=== PATIENT | female | born 1970 | race Caucasian/White ===

== ENCOUNTER 2022-05-08 16:19 | Outpatient (CLI) | payer OTHER, SELFPAY ==
[2022-05-08 17:02] LABS: Beta HCG Quantitative < 2.39 mIU/ML
== END 2022-05-08 16:20 | disposition home or self-care (01) ==
LOC: ANHLAB 16:23
PROVIDERS: PCP Internal Medicine; Visit Provider Student in an Organized Health Care Education/Training Program
DX: N93.9 Abnormal uterine and vaginal bleeding, unspecified (principal)
CPT/HCPCS: 36415; 84702

== ENCOUNTER 2022-07-11 16:06 | Outpatient (CLI) | payer OTHER, SELFPAY ==
--- NOTE | ~2022-07-11 | US_ITS ---
EXAMINATION: US pelvic complete w TV DATE: 07/11/2022 16:52 INDICATION: Frequent menstruation. Assess IUD placement. TECHNIQUE: Multiple endovaginal sonographic images of the pelvis were obtained. COMPARISON: 04/27/2022 FINDINGS: The uterus measures 11.3 x 7.9 x 7.6 cm. 2.3 cm hypoechoic fibroid in the anterior uterine wall. 10 m m anechoic nabothian cyst at the cervix. The endometrial complex measures 8 mm in thickness. No IUD i dentified. Right left ovaries are not visualized. There is no free fluid in the pelvis. IMPRESSION: 1. No IUD identified in the endometrial complex which measures 8 mm in thickness. 2. No significant change in a 2.3 cm fibroid in the anterior uterine wall. Reviewed, dictated and finalized at location A. IMPRESSION: 1. No IUD identified in the endometrial complex which measures 8 mm in thicknes s. 2. No significant change in a 2.3 cm fibroid in the anterior uterine wall.
== END 2022-07-11 16:07 | disposition home or self-care (01) ==
PROVIDERS: PCP Internal Medicine; Visit Provider Obstetrics & Gynecology
DX: N92.0 Excessive and frequent menstruation with regular cycle (principal)
CPT/HCPCS: 76830; 76856

== ENCOUNTER 2022-07-12 16:30 | Outpatient (CLI) | payer OTHER, SELFPAY ==
--- NOTE | ~2022-07-12 | XR_ITS ---
AP and oblique views of the abdomen CLINICAL HISTORY: IUD not seen on ultrasound FINDINGS: Bowel gas pattern nonspecific. Osseous structures are intact. Possible 3 mm left renal ston e. No IUD visualized. IMPRESSION: No IUD visualized. Possible 3 mm left renal stone. Reviewed, dictated and finalized at [facility].
--- NOTE | ~2022-07-12 | XR_ITS ---
AP and oblique views of the pelvis CLINICAL HISTORY: IUD not visualized on ultrasound FINDINGS: No fracture or dislocation seen. Visually joint spaces are preserved. Soft tissues are unre markable. No IUD identified. IMPRESSION: No IUD seen in the [id number]. No significant abnormality otherwise. Reviewed, dictated and finalized at location . IMPRESSION: No IUD seen in the [id number]. No significant abnormality otherwise.
== END 2022-07-12 16:31 | disposition home or self-care (01) ==
LOC: ANHIMG 16:32
PROVIDERS: PCP Internal Medicine; Visit Provider Obstetrics & Gynecology
DX: T83.32XA Displacement of intrauterine contraceptive device, initial encounter (principal)
CPT/HCPCS: 72190; 74021

== ENCOUNTER 2022-08-16 01:20 | Day surgery (SDC) | payer OTHER, SELFPAY ==
[2022-08-10 14:18] VITALS: BMI 45.5
--- NOTE | 2022-08-10 14:21 | SUR.PREOP ---
Report to the Outpatient Waiting Room, entrance under the green pavilion located off [facility], at time on date . Planned Procedure Time: . Time changes happen often and if your time is changed the preop area will call you the afternoon before. - You and your visitor will be asked to self-screen and do not enter if you have any COVID symptoms. - A mask is optional within the hospital at this time. Patients may have clear liquids (water, carbonated beverages, clear teas, apple juice) until 3 hours prior to surgery with a maximum of 20 ounces. - No food from midnight until time of surgery - Infants may have breast milk until 4 hours before surgery, infant formula 6 hours prior to surgery. - Children will be allowed to drink immediately following surgery. If applicable, please bring a bottle or sippy cup to assist with drinking. Juice, water, soda, and popsicles are readily available. For infants on formula, please bring formula the day of surgery. Pacifiers are allowed. Take the following medications with a SIP of water the morning of surgery: DO NOT STOP ANY OF YOUR OTHER PRESCRIPTION MEDICATIONS PRIOR TO SURGERY ?EXCEPT THE FOLLOWING Medications to discontinue per physician Date to take last dose Please no make-up, nail pashto, hairspray, perfume, deodorant, or body powder the day of surgery. No jewelry (including any body piercings) or valuables the day of surgery, leave them at home. Please take a shower or bath the night before, or the morning of, surgery with an antibacterial soap. Wear comfortable, loose fitting clothing. Children are encouraged to wear pajamas. - Jewelry must be removed prior to entering the operating room. Rings and piercings that are not removed may be cut off. - The hospital will not accept responsibility for valuables. - Please leave all valuables, including medications, at home the day of surgery. If you are going home after surgery, a licensed long haul truck driver must drive you home. - NO public transportation without another adult if you receive anesthesia. - We recommend that an adult stay with you for 24 hours following discharge. - We also recommend that you do not drive, make important decision, drink alcoholic beverages, or take any drugs that were not prescribed by your health care provider for at least 24 hours after your discharge time. For Pediatric surgeries, we recommend two adults accompany the child home. Follow any additional instructions given to you from your surgeon. If you or anyone in your household have experienced Covid symptoms in the past week, please notify your surgeon or the nurse liaison at the phone number below for possible testing. Telephone instructions given to and asked if any additional questions and then verbalized understanding. Patient advised to call surgeon office or pre surgery nurse liaison [phone] if any additional questions.
--- NOTE | 2022-08-10 14:22 | SUR.PREOP ---
Report to the Outpatient Waiting Room, entrance under the green pavilion located off [facility], at time _0745 on date _08/16/22 . Planned Procedure Time: __944 . Time changes happen often and if your time is changed the preop area will call you the afternoon before. - You and your visitor will be asked to self-screen and do not enter if you have any COVID symptoms. - A mask is optional within the hospital at this time. Patients may have clear liquids (water, carbonated beverages, clear teas, apple juice) until 3 hours prior to surgery with a maximum of 20 ounces. - No food from midnight until time of surgery - Infants may have breast milk until 4 hours before surgery, infant formula 6 hours prior to surgery. - Children will be allowed to drink immediately following surgery. If applicable, please bring a bottle or sippy cup to assist with drinking. Juice, water, soda, and popsicles are readily available. For infants on formula, please bring formula the day of surgery. Pacifiers are allowed. Take the following medications with a SIP of water the morning of surgery: __lexapro,levothyroxine DO NOT STOP ANY OF YOUR OTHER PRESCRIPTION MEDICATIONS PRIOR TO SURGERY ?EXCEPT THE FOLLOWING Medications to discontinue per physician ___n/a Date to take last dose___n/a pt to consult with dr zhao in regards to holding xarelto Please no make-up, nail brazilian, hairspray, perfume, deodorant, or body powder the day of surgery. No jewelry (including any body piercings) or valuables the day of surgery, leave them at home. Please take a shower or bath the night before, or the morning of, surgery with an antibacterial soap. Wear comfortable, loose fitting clothing. Children are encouraged to wear pajamas. - Jewelry must be removed prior to entering the operating room. Rings and piercings that are not removed may be cut off. - The hospital will not accept responsibility for valuables. - Please leave all valuables, including medications, at home the day of surgery. If you are going home after surgery, a licensed motor coach driver must drive you home. - NO public transportation without another adult if you receive anesthesia. - We recommend that an adult stay with you for 24 hours following discharge. - We also recommend that you do not drive, make important decision, drink alcoholic beverages, or take any drugs that were not prescribed by your health care provider for at least 24 hours after your discharge time. For Pediatric surgeries, we recommend two adults accompany the child home. Follow any additional instructions given to you from your surgeon. If you or anyone in your household have experienced Covid symptoms in the past week, please notify your surgeon or the nurse liaison at the phone number below for possible testing. Telephone instructions given to tarah dixon and asked if any additional questions and then verbalized understanding. Patient advised to call surgeon office or pre surgery nurse liaison [phone] if any additional questions.
[2022-08-16] VITALS (10 sets, daily range): BP systolic 106–132; BP diastolic 60–108; PULSE 68–92; RESP 14–18; TEMP 36.6–36.8; O2SAT 92–100
--- NOTE | 2022-08-16 06:08 | ECG_ITS ---
Measurements Intervals [place] Rate: 84 P: 28 AK: 144 QRS: 7 QRSD: 78 T: 10 QT: 355 QTc: 420 Interpretive Statements SINUS RHYTHM NO PREVIOUS ECG AVAILABLE FOR COMPARISON Electronically Signed On 08-16-2022 13:32:38 CDT by Candida Rodriguez M.D.
--- NOTE | 2022-08-16 09:05 | P.HPUP_ITS ---
History and Physical Update Update Date/Time: 08/16/22 09:05 Assessment: 1. menorrhagia 2. desires sterilization Plan: 1. hysteroscopy with uterine curetting 2. endometrial ablation 3. bilateral salpingectomy History and Physical has been reviewed, including an updated exam of the patie nt. There are NO changes in the patient's condition. Risks, benefits, and alternatives have been discussed and questions answered. Patient agrees to proceed with procedure.
--- NOTE | 2022-08-16 09:08 | WPDANESEPPF ---
Anes - Initial Pre Proc Eval Procedure: Operation Date: 08/16/22 10:15 Proposed Procedures p Hysteroscopy Dilation and Curettage, Raiza Endometrial Ablation, Bilateral Laparoscopic Salpingectomy - Aaron Palomares MD Date/Time: 08/16/22 09:08 Surgeon: Aaron Palomares MD Pre Op Diagnosis: Menorrhagia, Desire Sterilization Patient Data Age: 51 Gender: F Height: 1.83 m Weight: 152.27 kg Allergies Allergy/AdvReac Type Severity Reaction Status Date / Time codeine AdvReac Intermediate Nausea Verified 08/10/22 13:26 hydrocodone AdvReac Intermediate NAUSEA Verified 08/10/22 13:25 Home Medications Medication Instructions Recorded Confirmed Type escitalopram oxalate 20 mg tablet 20 mg PO DAILY 04/19/22 08/10/22 History (Lexapro) ferrous sulfate 325 mg (65 mg mg PO 08/10/22 History iron) tablet,delayed release levothyroxine 300 mcg tablet 300 mcg PO DAILY 08/10/22 08/10/22 History minocycline 50 mg tablet mg 08/10/22 History rivaroxaban 20 mg tablet (Xarelto) 20 mg PO DAILY 08/10/22 08/10/22 History Patient hx anesthesia problems: none Family hx anesthesia problems: none Results Review: All pre-operative results and documents have been reviewed as part of the pre-operative evaluation. [facility] Past Medical History Medical History Anxiety Depression Encounter for initial insertion of intrauterine contraceptive device Hypothyroid IUD migration Kidney stone Surgical History Surgical History H/O hernia repair History of gynecological procedure (05/09/22) mirena iud insertion Hx of cholecystectomy Hx of gastric bypass Family History Family History Other Breast cancer Father Diabetes mellitus Grandparent Diabetes mellitus Heart disease Social History Social History Smoking status: Never smoker Alcohol intake: current Alcohol use details: socially Substance use: current Substance use type: marijuana Other substance usage details: eatables biweekly Living arrangements: with family Occupation/Education: unemployed Gender identity (if verbalized by the patient): Female Sexual Orientation (if Verbalized by the Patient): Straight or Heterosexual Spiritual care concerns: No Anes - Eval Final PreProcedure Day of Procedure 08/16/22 09:08 Patient weight: morbidly obese Heart: regular rate and rhythm Lungs: clear to auscultation Airway: Mallampati scale class II Neurological: alert and oriented Last oral intake: >/= 8 hours ASA classification: III Emergent: no Anesthetic plan: proceed Anesthesia type and monitoring: general ETT and standard monitoring Results Review: All pre-operative results and documents have been reviewed as part of the pre-operative evaluation. Informed Consent: The patient's anesthetic plan and its attendant risks and benefits were discussed with the patient/family/POA. Questions were solicited and answers provided to the satisfaction of the patient/family/POA.
[2022-08-16 09:42] LABS: Prothrombin Time 13.1 Seconds (11.1-14.7)
[2022-08-16 09:43] LABS: Partial Thromboplastin Time 23.2 SECONDS (22.3-36.8)
[2022-08-16] MEDS: KETOROLAC 15 MG/ML VIAL (*BKC) IV PUSH (09:45)
[2022-08-16] MEDS: ACETAMINOPHEN 500 MG TABLET 1000 MG PO (09:45)
[2022-08-16] MEDS: LACTATED RINGERS 1,000 ML 30 ML IV CONT ×2 (09:45→10:57)
[2022-08-16] MEDS: ceFAZolin SODIUM 1 GM VIAL 3 GM IV PUSH (10:25)
--- NOTE | 2022-08-16 10:54 | P.OP_ITS ---
Procedure Note - Detailed Date of Procedure 08/16/22 Pre-op Diagnosis Menorrhagia, Desire Sterilization Post-op Diagnosis Same Procedure Performed 1. hysteroscopy with uterine curettings 2. Endometrial ablation 3. Bilateral salpingectomy Surgeon Aaron Palomares MD Anesthesia General Findings Hysteroscopic exam without abnormality. Laparoscopic exam with uterine fibroids, tubes and ovaries without abnormality. Description of Procedure Patient prepped draped usual manner for this procedure. Attention was placed the vagina and cervical instruments placed for uterine mobility throughout the case. Abdominal trocar sites were then placed under direct visualization, with the camera port being in the left upper quadrant due to prior periumbilical surgery. Lower trocars were then also placed under direct visualization and findings were as noted above. Bilaterally the tubes were grasped and mesial salpinx was cauterized and cut and tubes removed without difficulty. There was no bleeding, gas was allowed to escape, and incisions were approximated using 4- 0 Monocryl and skin glue. Cervix was dilated to allow the hysteroscope be placed with findings again as noted above with no significant abnormalities noted. Uterine curettings were obtained. Raiza instrument was then placed in the uterine cavity, cavity assessment was performed, and procedure was activated. At the end of the procedure hysteroscopic exam revealed no abnormalities and no remaining tissue. And good destruction throughout the endometrial cavity. Patient was then sent to recovery room in stable condition. Estimated Blood Loss 10 Drains No Packing No Pathology Yes Complications No immediate complications Condition Stable Disposition PACU [facility] Billing Surgery - Charge Forward: Surgery Billing
[2022-08-16] MEDS: oxyCODONE HCL (*CRX) 5 MG TAB IR PO (12:50)
[2022-08-16] MEDS: fentaNYL CITRATE INJ (*CRX) 100 MCG/2 ML VIAL 25 MCG IV PUSH (12:56)
--- NOTE | 2022-08-16 13:53 | SUR.PHASEII ---
1230 PATIENT C/O'D LEFT-MEDIAL MID-CHEST PAIN, DULL X FEW MINUTES. RESOLVED AFTER SHE STOOD UP.
== END 2022-08-16 13:45 | disposition home or self-care (01) ==
PROVIDERS: Anesthesiology; PCP Internal Medicine; Visit Provider Obstetrics & Gynecology
PROC: 0UDB8ZZ Extraction of Endometrium, Via Natural or Artificial Opening Endoscopic (ICD-10-PCS; CPT 58558; principal; 2022-08-16 10:15)
DX: N92.0 Excessive and frequent menstruation with regular cycle (principal); Z30.2 Encounter for sterilization; D25.9 Leiomyoma of uterus, unspecified; E03.9 Hypothyroidism, unspecified; F41.9 Anxiety disorder, unspecified; F32.A Depression, unspecified; Z98.84 Bariatric surgery status; F12.90 Cannabis use, unspecified, uncomplicated; E66.01 Morbid (severe) obesity due to excess calories; Z68.42 Body mass index [BMI] 45.0-49.9, adult; Z79.01 Long term (current) use of anticoagulants
CPT/HCPCS: 58563; 58661; 36415; 85610; 85730; 88302; 88305; 93005; A9270; J0330; J0690; J1100; J1885; J2250; J2405; J2704; J3010; J7120

== ENCOUNTER 2023-11-18 22:19 | Emergency (ER) | payer OTHER, SELFPAY ==
--- NOTE | ~2023-11-18 | CT_ITS ---
Non-contrast CT scan of the Abdomen and Pelvis Clinical indication: Left ureteral stone Technique: 2.5 mm axial scans were obtained through the abdomen and pelvis without intravenous or or al contrast. Dose reduction technique was used on this scan by utilizing automated exposure control a nd iterative reconstruction technique. The dose-length product (DLP) was 1570.61 mGy-cm. Findings: Images through the lung bases reveal no abnormalities. Punctate nonobstructing left renal stone present. No right renal stone. There is a 4 mm stone at the left UVJ versus just within the urinary bladder. No hydronephrosis. No right ureteral stone. The liver, spleen, pancreas, and adrenals appear normal. Gallbladder absent. There is no aortic aneur ysm. There is no evidence of bowel obstruction. Evidence of prior bariatric surgery or fundoplication. Sma ll hiatal hernia noted. Small fat-containing ventral hernia noted at the umbilicus. Images through the pelvis were performed. There is no evidence of ascites or lymphadenopathy. No adne xal mass seen. Impression: 4 mm stone at the left UVJ, or else just within the urinary bladder. No hydronephrosis. Additional punctate nonobstructing left renal stone. Small hiatal hernia, without evidence of probable prior fundoplication or bariatric surgery. Small fat-containing umbilical hernia. Reviewed, dictated and finalized at [facility]. Impression: 4 mm stone at the left UVJ, or else just within the urinary bladder. No hydrone phrosis. Additional punctate nonobstructing left renal stone. Small hiatal hernia, without evidence of probable prior fundoplication or baria tric surgery. Small fat-containing umbilical hernia.
[2023-11-18 22:20] VITALS: BP 140/91; PULSE 86; RESP 20; TEMP 36.1; O2SAT 100
[2023-11-18 23:03] LABS: Basophils Percent Auto 0.3 % (0.2-1.2); Eosinophils Absolute Auto 0.3 K/mm3 (0-0.3); Eosinophils Percent Auto 3.1 % (0-4.4); Hematocrit 41.6 % (37.0-47.0); Hemoglobin 13.9 g/dL (12.0-15.0); Immature Granulocyte Absolute 0.05 K/mm3 (0.00-0.031); Immature Granulocyte Percent A 0.6 % (0-0.5); Lymphocytes Absolute Auto 2.03 K/mm3 (0.9-3.2); Lymphocytes Percent Auto 23.3 % (18.3-44.2); Mean Corpuscular HGB Conc 33.4 g/dl (32-36); Mean Corpuscular Hemoglobin 32.3 pg (26-34); Mean Corpuscular Volume 96.5 fl (80-100); Mean Platelet Volume 11.5 fl (7.4-10.4); Monocytes Absolute Auto 0.8 K/mm3 (0.1-0.6); Monocytes Percent Auto 8.6 % (2.6-8.5); Neutrophils Absolute Auto 5.6 K/mm3 (1.3-6.7); Neutrophils Percent Auto 64.1 % (45.5-73.1); Platelet Count Result 270 k/mm3 (150-375); Red Blood Count 4.31 M/mm3 (4.2-5.4); Red Cell Distribution Width 13.2 % (11.5-14.5); White Blood Count 8.7 K/mm3 (4.5-10.0)
[2023-11-18 23:14] LABS: Alanine Aminotransferase 119 U/L (6-35); Alkaline Phosphatase 159 U/L (38-126); Anion Gap 10 mmol/L (4-12); Aspartate Amino Transferase 68 U/L (14-36); Bilirubin,Total 0.2 mg/dL (0.2-1.3); Blood Urea Nitrogen 15 mg/dL (7-17); Calcium 9.3 mg/dL (8.4-10.2); Carbon Dioxide 21 mmol/L (22-30); Chloride 108 mmol/L (98-107); Estimated CRCL calculation 87 ml/min; Estimated Glomerular Filt Rate 52; Glucose 80 mg/dL (65-110); Potassium 4.1 mmol/L (3.4-5.0); Sodium 139 mmol/L (137-145)
[2023-11-18 23:34] LABS: BEDSIDEPREGUCG Negative (Negative)
[2023-11-18 23:37] LABS: Add Urine Microscopic? YES; Appearance Urine Turbid (Clear); Bacteria Urine 4+ /hpf; Bilirubin Urine Negative (Negative); Blood Urine 3+ (Negative); Color Urine Dark Yellow (Yellow); Glucose Urine UA Negative (Negative); Ketones Urine Trace mg/dL (Negative); Leukocyte Esterase Ur 1+ LEU/UL (Negative); Need Manual Microscopic Reviewed; Nitrate Urine Negative (Negative); Non Pathogenic Casts 0-2; Protein Urine Trace mg/dL (Negative); RBC Urine >100 /hpf (0-2); Specific Grav Ur 1.033 (1.001-1.035); Squamous Epithelial Cell Urine Many /hpf (Few); WBC Urine 21-50 /hpf (0-3); pH Urine 5.5 (5.0-9.0)
--- NOTE | 2023-11-19 00:36 | ED.FEMALEGU ---
HPI - Female Genitourinary General Chief complaint: Urogenital-Female Stated complaint: kidney stone? Time Seen by Provider: 11/18/23 22:41 History of Present Illness HPI Narrative: 52-year-old female with a history of hypothyroidism, DVT on Xarelto and multiple kidney stones presents to emergency department with concerns for a kidney stone. Patient states this evening she began developing pain in her left lower abdomen today. States at time is moves to her left flank. She states the pain is colicky and intermittent nature. She reports associated nausea. States she noticed some gross hematuria a few days ago with associated urinary frequency and urgency but that seems to have resolved. Denies dysuria, fever, vomiting. She does note that she has had several urologic procedures in the past due to large kidney stones. Related Data Home Medications Medication Instructions Recorded Confirmed escitalopram oxalate 20 mg tablet 20 mg PO DAILY 04/19/22 04/23/23 (Lexapro) levothyroxine 300 mcg tablet 300 mcg PO DAILY 08/10/22 04/23/23 minocycline 50 mg tablet mg 08/10/22 04/23/23 rivaroxaban 20 mg tablet (Xarelto) 20 mg PO DAILY 08/10/22 04/23/23 cyanocobalamin (vitamin B-12) 100 mcg subcut 04/23/23 04/23/23 1,000 mcg/mL injection solution thiamine HCl (vitamin B1) 50 mg 50 mg PO 04/23/23 04/23/23 tablet Allergies Allergy/AdvReac Type Severity Reaction Status Date / Time codeine AdvReac Intermediate Nausea Verified 11/18/23 22:23 hydrocodone AdvReac Intermediate NAUSEA Verified 11/18/23 22:23 Review of Systems Review of Systems: All systems reviewed & are unremarkable except as noted in HPI and below PMFSH Past Medical History Medical History Anxiety Depression Encounter for initial insertion of intrauterine contraceptive device Hypothyroid IUD migration Kidney stone Surgical History Surgical History H/O hernia repair History of gynecological procedure (05/09/22) mirena iud insertion/ fell out Hx of cholecystectomy Hx of gastric bypass S/P endometrial ablation (08/16/22) 08/16/2022 - hysteroscopy with uterine curetting's 2. Endometrial ablation 3. Bilateral salpingectomy Family History Family History Other Breast cancer Father Diabetes mellitus Grandparent Diabetes mellitus Heart disease Social History Social History Smoking status: Never smoker Alcohol intake: current Alcohol use details: socially Substance use: current Substance use type: marijuana Other substance usage details: eatables biweekly Lack of Transportation: No Lack of Food: Never True Current Housing: I Have Housing Concerned About Future Housing: No Difficulty Paying Gas/Electric Bills: YES Difficulty Paying for Meds: No Currently Unemployed: No Education: High School Diploma/GED Difficulty w/ Childcare or Family Care: No Living arrangements: other Additional living arrangements comments: Occupation/Education: occupation Additional occupation/education comments: dispatcher Gender identity (if verbalized by the patient): Female Sexual Orientation (if Verbalized by the Patient): Straight or Heterosexual Spiritual care concerns: No Exam Narrative: GENERAL: Well-appearing, well-nourished, and in no acute distress. HEAD: Normocephalic, atraumatic. ENT: Nares clear, no rhinorrhea or epistaxis. Mucous membranes moist. NECK: Supple. CHEST: Clear to auscultation. No respiratory distress. HEART: Regular rate and rhythm. No murmur heard. Normal peripheral pulses. ABDOMEN: Soft, nontender, nondistended, normal active bowel sounds. No rebound, guarding or rigidity. No CVA tenderness. EXTREMITIES: Normal range of motion. No edema. SKIN: Warm, dry, no rash
[2023-11-19] MEDS: ONDANSETRON INJ 4 MG/2 ML VIAL IV PUSH ×2 (01:09→02:33)
[2023-11-19] MEDS: MORPHINE SULFATE (*CRX) 4 MG/ML INJ IV PUSH (01:10)
[2023-11-19 01:11] VITALS: BP 116/82; PULSE 84; RESP 16; O2SAT 100
[2023-11-19] MEDS: SODIUM CHLORIDE 0.9% IV 1,000 ML 999 ML IV CONT (02:22)
[2023-11-19] MEDS: GABAPENTIN 300 MG CAPSULE 600 MG PO (03:12)
[2023-11-19 03:15] VITALS: BP 122/70; PULSE 80; RESP 15; O2SAT 98
--- NOTE | 2023-12-07 21:05 | PC.NURSE ---
LATE ENTRY This note is being entered to document information to the patient's record. The following information was omitted on [11/19/23], by [Rehana Sparrow RN]. NS stop time was 0315am
== END 2023-11-19 03:16 | disposition home or self-care (01) ==
PROVIDERS: Preventive Medicine Aerospace Medicine; Emergency Provider Physician Assistant; PCP Internal Medicine
DX: N30.01 Acute cystitis with hematuria (principal); E03.9 Hypothyroidism, unspecified; F41.9 Anxiety disorder, unspecified; F32.A Depression, unspecified; Z98.84 Bariatric surgery status; Z86.718 Personal history of other venous thrombosis and embolism; Z87.442 Personal history of urinary calculi; Z90.49 Acquired absence of other specified parts of digestive tract; Z90.79 Acquired absence of other genital organ(s); N20.2 Calculus of kidney with calculus of ureter; K44.9 Diaphragmatic hernia without obstruction or gangrene; K42.9 Umbilical hernia without obstruction or gangrene; G62.9 Polyneuropathy, unspecified
CPT/HCPCS: 36415; 74176; 80053; 81001; 81025; 85025; 87077; 87086; 87088; 87186; 96361; 96365; 96375; 99284; A9270; J0696; J2270; J2405; J7030